=== PATIENT | female | born 1970 | race Caucasian/White ===

== ENCOUNTER → 2020-10-14 | Outpatient (CLI) | payer OTHER, BC | LOC: RAD 18:22 | DX: M79.641 Pain in right hand (principal) ==

== ENCOUNTER → 2022-05-11 | Outpatient (CLI) | payer BC | LOC: RAD 14:03 | DX: M77.32 Calcaneal spur, left foot (principal); W19.XXXA Unspecified fall, initial encounter ==

== ENCOUNTER → 2023-02-08 | Outpatient (CLI) | payer BC | LOC: LAB 10:03 | DX: J02.9 Acute pharyngitis, unspecified (principal) ==